=== PATIENT | male | born 1955 | race African-American/Black ===

== ENCOUNTER 2016-12-11 09:33 | Observation (INO) | payer OTHER ==
--- NOTE | 2016-12-11 10:17 | ER Document Report ---
ED Medical Screen (RME) - General Chief Complaint: Nausea/Vomiting/Diarrhea Stated Complaint: ABDOMINAL PAIN Notes: 61-year-old male here for diarrhea. Patient states she has had this diarrhea for 3 weeks. He also states that he has had right upper quadrant pain for 3 weeks. He states he has not had similar episodes in the past. He has been on no recent antibiotics. No fevers. He denies vomiting but states that he has been "spitting up". He denies any problems with urine. He states that the diarrhea is watery and it is every day for almost every bowel movement. He denies any black or bloody stool. Patient denies any abdominal surgeries. Patient states he has had hepatitis C in the past but this was treated with medications 3 years ago and he has had no further problems. Patient states he did start a new medicine 3 weeks ago for arthritis that is meloxicam. Patient' s vitals are stable. He does have some right upper quadrant tenderness to palpation. His heart is regular rate and rhythm. Lungs are clear to auscultation. Skin is warm and dry. Patient is alert, cooperative and conversant. TRAVEL OUTSIDE OF THE [place] IN LAST 30 DAYS: No - Related Data Allergies/Adverse Reactions: No Known Allergies Allergy (Unverified 12/11/16 10:14) Past Medical History Renal/ Medical History: Denies: Hx Peritoneal Dialysis Physical Exam - Vital signs Vitals: Temp Pulse Resp BP Pulse Ox 97.9 F 82 20 146/91 H 99 12/11/16 09:47 12/11/16 09:47 12/11/16 09:47 12/11/16 09:47 12/11/16 09:47 Course - Vital Signs Vital signs: Temp Pulse Resp BP Pulse Ox 97.9 F 82 20 146/91 H 99 12/11/16 09:47 12/11/16 09:47 12/11/16 09:47 12/11/16 09:47 12/11/16 09:47
[2016-12-11] MEDS ORDERED: NORMAL SALINE 1000 ML 1,000 ML IV PRN (10:18)
[2016-12-11 10:53] LABS: ABSOLUTE LYMPHOCYTES (AUTO) 1.6 10^3/uL (0.5-4.7); ABSOLUTE MONOCYTES (AUTO) 0.6 10^3/uL (0.1-1.4); ABSOLUTE NEUT (AUTO) 4.9 10^3/uL (1.7-8.2); BASOPHILS % (AUTO) 0.3 % (0-2); EOSINOPHILS % (AUTO) 0.1 % (0-6); HEMATOCRIT 42.2 % (37.9-51.0); HEMOGLOBIN 13.4 g/dL (13.5-17.0); LYMPHOCYTES % (AUTO) 22.6 % (13-45); MEAN CORPUSCULAR HEMOGLOBIN 25.2 pg (27.0-33.4); MEAN CORPUSCULAR HGB CONC 31.7 g/dL (32.0-36.0); MEAN CORPUSCULAR VOLUME 80 fl (80-97); MONOCYTES % (AUTO) 8.8 % (3-13); RED BLOOD COUNT 5.31 10^6/uL (4.35-5.55); RED CELL DISTRIBUTION WIDTH 14.7 % (11.5-14.0); SEGMENTED NEUTROPHILS % (AUTO) 68.2 % (42-78); WHITE BLOOD COUNT 7.2 10^3/uL (4.0-10.5)
[2016-12-11] MEDS ORDERED: NORMAL SALINE 1000 ML 1,000 ML IV ONE ×2 (11:11→15:26)
[2016-12-11] MEDS ORDERED: MORPHINE SULFATE 10 MG/ML INJ IV ONE (11:11)
[2016-12-11] MEDS ORDERED: ONDANSETRON HCL INJ/PF 4 MG/2 ML SDV IV ONE (11:11)
[2016-12-11 11:17] LABS: ALANINE AMINOTRANSFERASE 217 U/L (21-72); ALBUMIN 4.3 g/dL (3.5-5.0); ALKALINE PHOSPHATASE 606 U/L (38-126); ANION GAP 17 (5-19); ASPARTATE AMINO TRANSFERASE 475 U/L (17-59); BILIRUBIN,DIRECT 4.2 mg/dL (0.0-0.4); BILIRUBIN,TOTAL 6.1 mg/dL (0.2-1.3); BLOOD UREA NITROGEN 29 mg/dL (7-20); CALCIUM 9.5 mg/dL (8.4-10.2); CARBON DIOXIDE 28 mmol/L (22-30); CHLORIDE 95 mmol/L (98-107); CREATININE RESULT 1.57 mg/dL (0.52-1.25); GLUCOSE 108 mg/dL (75-110); LIPASE 217.3 U/L (23-300); POTASSIUM 3.6 mmol/L (3.6-5.0); SODIUM 140.3 mmol/L (137-145); TOTAL PROTEIN 8.6 g/dL (6.3-8.2)
--- NOTE | 2016-12-11 11:17 | ER Document Report ---
ED GI/ - General Chief Complaint: Nausea/Vomiting/Diarrhea Stated Complaint: ABDOMINAL PAIN Time Seen by Provider: 12/11/16 11:10 Information source: Patient Notes: 61-year-old male who presents today with some epigastric and right lower quadrant intermittent abdominal pain for the last 3 weeks with some nausea, vomiting, and diarrhea. He denies any blood in the vomit or diarrhea. He states he has had around 3 bouts of diarrhea per day. He denies any recent trips, travel, or antibiotics. Patient denies any aggravating or relieving factors. He denies any fevers, dysuria or flank pain. He denies any prior history of abdominal surgery. TRAVEL OUTSIDE OF THE [place] IN LAST 30 DAYS: No - HPI Patient complains to provider of: Abdominal pain Onset: Other - See above Timing/Duration: Gradual Quality of pain: Achy Severity at maximum: Moderate Severity in ED: Moderate Pain Level: 2 Location: Other - See above Sexual history: Inactive Associated symptoms: Other - See above Exacerbated by: Denies Relieved by: Denies Similar symptoms previously: No Recently seen / treated by doctor: Yes - Related Data Allergies/Adverse Reactions: No Known Allergies Allergy (Unverified 12/11/16 10:14) Past Medical History - General Information source: Patient - Social History Smoking Status: Current Some Day Smoker Cigarette use (# per day): No Chew tobacco use (# tins/day): No Smoking Education Provided: No Frequency of alcohol use: None Drug Abuse: Marijuana Family History: Reviewed & Not Pertinent Patient has suicidal ideation: No Patient has homicidal ideation: No - Past Medical History Cardiac Medical History: Reports: Hx Hypertension Renal/ Medical History: Denies: Hx Peritoneal Dialysis Surgical Hx: Negative Review of Systems - Review of Systems Constitutional: denies: Fever EENT: denies: Eye discharge, Nose discharge Cardiovascular: denies: Chest pain, Palpitations Respiratory: denies: Short of breath Gastrointestinal: Diarrhea, Vomiting Genitourinary: denies: Dysuria Musculoskeletal: denies: Leg swelling Skin: Other - no hives. denies: Rash Neurological/Psychological: Other - no slurred speech -: Yes All other systems reviewed and negative Physical Exam - Vital signs Vitals: Temp Pulse Resp BP Pulse Ox 97.9 F 82 20 146/91 H 99 12/11/16 09:47 12/11/16 09:47 12/11/16 09:47 12/11/16 09:47 12/11/16 09:47 Notes: Reviewed vital signs and nursing note as charted by RN. CONSTITUTIONAL: Alert and oriented and responds appropriately to questions. Well -appearing; well-nourished HEAD: Normocephalic; atraumatic EYES: Sclerae non-icteric ENT: Normal nose; no rhinorrhea; moist mucous membranes; pharynx without lesions noted NECK: Supple without meningismus; non-tender CARD: Regular rate and rhythm; no murmurs, no clicks, no rubs, no gallops; symmetric distal pulses RESP: Normal chest excursion without splinting or tachypnea; breath sounds clear and equal bilaterally ABD/GI: Normal bowel sounds; non-distended; soft, mildly tender to the right lower quadrant and midepigastric region with a negative Farley sign. No rebound or guarding. No abdominal bruits or palpable masses BACK: The back appears normal and is non-tender to palpation, there is no CVA tenderness EXT: Normal ROM in all joints; non-tender to palpation; no cyanosis, no effusions, no edema SKIN: Normal color for age and race; warm; dry; good turgor; capillary refill < 2 seconds; no acute lesions noted NEURO: Moves all extremities equally; Motor and sensory function intact PSYCH: The patient's mood and manner are appropriate. Grooming and personal hygiene are appropriate. Course - Re-evaluation Re-evalutation: 12/11/16 11:16 Given the above history and physical examination we will order liver panel, lipase, and a CT scan of the abdomen and pelvis. Vital signs are stable. Given the diarrhea for an excessive amount of time, a liter of fluid has been provided. Patient currently has no rebound or guarding. Patient comes in by EMS after initially being seen by his primary provider at the [place]. Patient has a packet with him about a recent MRI. Patient states many years ago he fell at work and is getting follow-up imaging for his back. He denies any incontinence, weakness or numbness of his legs. 12/11/16 11:19 Reviewing the patient's outside medical records it appears the patient has chronic hepatitis C with elevated transaminases as well as a history of alcohol abuse. 12/11/16 12:10 Patient appears to have a very elevated bilirubin and transaminitis. White blood cell count is recorded. I have added an ultrasound to the patient's laboratory panel. 12/11/16 15:22 CT scan of the abdomen and pelvis as recorded after an unremarkable ultrasound of the gallbladder region. Given the findings, we will admit the patient to the hospitalist for further evaluation and pain management as well as possible GI and oncology consultation. - Vital Signs Vital signs: Temp Pulse Resp BP Pulse Ox 97.8 F 67 18 145/86 H 94 12/11/16 13:28 12/11/16 13:28 12/11/16 13:28 12/11/16 13:28 12/11/16 13:28 - Laboratory Result Diagrams: 12/11/16 10:30 12/11/16 10:30 Laboratory results interpreted by me: 12/11/16 12/11/16 12/11/16 10:30 10:30 14:02 Hgb 13.4 L MCH 25.2 L MCHC 31.7 L RDW 14.7 H Chloride 95 L BUN 29 H Creatinine 1.57 H Est GFR ( Amer) 54 L Est GFR (Non-Af Amer) 45 L Total Bilirubin 6.1 H Direct Bilirubin 4.2 H AST 475 H ALT 217 H Alkaline Phosphatase 606 H Total Protein 8.6 H Urine Protein 100 H Urine Ketones TRACE H Urine Urobilinogen 4.0 H Discharge - Discharge Clinical Impression: Hyperbilirubinemia, Vomiting and diarrhea, Lesion of right lobe of liver Condition: Fair Disposition: ADMITTED INPATIENT Admitting Provider: Hospitalist Unit Admitted: Medical Floor
--- NOTE | 2016-12-11 13:52 | RADIOLOGY REPORT (SQ) ---
EXAM DESCRIPTION: U/S ABDOMEN LIMITED W/O DOP COMPLETED DATE/TIME: 12/11/2016 1:25 pm REASON FOR STUDY: 20; RLQ and RUQ abdominal pain with elevated bilir COMPARISON: None. TECHNIQUE: Dynamic and static grayscale images acquired of the abdomen and recorded on PACS. Additio nal selected color Doppler and spectral images recorded. LIMITATIONS: Study was limited somewhat due to overlying bowel gas. FINDINGS: PANCREAS: No masses. No peripancreatic edema or fluid collections. LIVER: Echotexture is coarse with increased echogenicity consistent with fatty infiltration. LIVER VASCULATURE: Portal vein is not visualized. GALLBLADDER: No stones. Normal wall thickness. No pericholecystic fluid. ULTRASOUND-DETECTED CEDILLO'S SIGN: Negative. INTRAHEPATIC DUCTS AND COMMON DUCT: No dilated intrahepatic bile ducts are identified. The common bi le duct was not visualized. No filling defects. INFERIOR VENA CAVA: Normal flow. AORTA: No aneurysm. RIGHT KIDNEY: 12.4 cm in length. Normal echogenicity. No solid or suspicious masses. Couple ayaz al cysts are identified with the largest measuring 2.9 x 1.2 1.6 cm in diameters. 2nd cyst measures 1.8 x 1.0 x 1.6 cm in diameters. No hydronephrosis. No calcifications. PERITONEAL AND RIGHT PLEURAL SPACE: No ascites or effusions. OTHER: No other significant finding. IMPRESSION: FATTY INFILTRATION OF THE LIVER. No other significant intra-abdominal abnormalities wer e identified. Other findings as noted above. TECHNICAL DOCUMENTATION: JOB ID: [id number] [email or web address]- All Rights Reserved
[2016-12-11 14:24] LABS: APPEARANCE,URINE SLIGHTLY-CLOUDY; BILIRUBIN,URINE NEGATIVE (NEGATIVE); GLUCOSE, URINE NEGATIVE (NEGATIVE); KETONES,URINE TRACE mg/dL (NEGATIVE); LEUKOCYTE ESTERASE,URINE NEGATIVE (NEGATIVE); NITRITE,URINE NEGATIVE (NEGATIVE); PROTEIN,URINE 100 mg/dL (NEGATIVE); URINE SPECIFIC GRAVITY 1.015
--- NOTE | 2016-12-11 15:04 | RADIOLOGY REPORT (SQ) ---
EXAM DESCRIPTION: CT ABD/PELVIS WITH IV ONLY COMPLETED DATE/TIME: 12/11/2016 2:43 pm REASON FOR STUDY: 20, Rlq and Ruq abdominal pain with vomiting and d COMPARISON: Abdominal ultrasound dated 12/11/2016 TECHNIQUE: CT scan of the abdomen and pelvis performed using helical scanning technique with dynamic intravenous contrast injection. No oral contrast. Images reviewed with lung, soft tissue, and bone windows. Reconstructed coronal and sagittal MPR images reviewed. Delayed images for evaluation of the urinary system also acquired. All images stored on PACS. All CT scanners at this facility use dose modulation, iterative reconstruction, and/or weight based d osing when appropriate to reduce radiation dose to as low as reasonably achievable (ALARA). [facility]: Dose Right [facility]: CareDose [facility]: Dose Right [facility]: Teradose 4D [facility]: LOC&ALL CONTRAST TYPE AND DOSE: contrast/concentration: Isovue 370.00 mg/ml; Total Contrast Delivered: 79.0 ml; Total Saline Delivered: 68.0 ml RENAL FUNCTION: Creatinine 1.57 RADIATION DOSE: Up-to-date CT equipment and radiation dose reduction techniques were employed. CTDIv ol: 10.2 - 14.7 mGy. DLP: 1519 mGy-cm.. LIMITATIONS: None. FINDINGS: LOWER CHEST: No significant findings. No nodules or infiltrates. LIVER: There is diffuse heterogeneous density throughout the right lobe of the liver with less pronou nced changes in the left lobe of the liver the appearance of which would suggest diffuse metastatic d isease. The possibility of a primary hepatic neoplasm cannot be excluded however. A small amount of perihepatic ascitic fluid is identified. SPLEEN: Normal size. No focal lesions. Perisplenic ascitic fluid is identified. PANCREAS: No masses. No significant calcifications. No adjacent inflammation or peripancreatic fluid collections. Pancreatic duct not dilated. GALLBLADDER: No identified stones by CT criteria. No inflammatory changes to suggest cholecystitis. ADRENAL GLANDS: No significant masses or asymmetry. RIGHT KIDNEY AND URETER: No solid masses. Small renal cysts are identified. No significant calcific ations. No hydronephrosis or hydroureter. LEFT KIDNEY AND URETER: No solid masses. Small renal cysts are identified. No significant calcifica tions. No hydronephrosis or hydroureter. AORTA AND VESSELS: No aneurysm. No dissection. Renal arteries, SMA, celiac without stenosis. RETROPERITONEUM: No retroperitoneal adenopathy, hemorrhage or masses. BOWEL AND PERITONEAL CAVITY: No masses or inflammatory changes. Lower abdominal and pelvic ascitic f luid is identified. APPENDIX: Not identified. PELVIS: Pelvic ascitic fluid is identified. ABDOMINAL WALL: No masses. No hernias. BONES: No significant or acute findings. OTHER: No other significant finding. IMPRESSION: There is diffuse heterogeneous density throughout the right lobe of the liver with less pronounced changes in the left lobe of the liver the appearance of which would suggest diffuse metast atic disease. The possibility of a primary hepatic neoplasm cannot be completely excluded however. Small amount of perihepatic and perisplenic ascitic fluid is identified. Ascitic fluid is identified in the lower abdomen and pelvis. Clinical correlation is recommended. Other findings as noted abov e TECHNICAL DOCUMENTATION: JOB ID: [id number] Quality ID # [id number]: Final reports with documentation of one or more dose reduction techniques (e.g., Au tomated exposure control, adjustment of the mA and/or kV according to patient size, use of iterative reconstruction technique) 2010 [employer]- All Rights Reserved
[2016-12-11] MEDS ORDERED: ACETAMINOPHEN 325 MG TABLET PO PRN (16:49)
[2016-12-11] MEDS ORDERED: DEXTROSE 5%-1/2 NORMAL SALINE 1,000 ML IV PRN (16:49)
[2016-12-11] MEDS ORDERED: ONDANSETRON HCL INJ/PF 4 MG/2 ML SDV IV PRN (16:49)
[2016-12-11] MEDS ORDERED: MORPHINE SULFATE 10 MG/ML INJ IV PRN (17:00)
[2016-12-11] MEDS ORDERED: OXYCODONE-ACETAMINOPHEN 5-325 MG TABLET PO PRN (17:01)
[2016-12-11] MEDS ORDERED: POTASSI CL 20 MEQ/50 ML RIDER 50 ML IV ONE (17:05)
--- NOTE | 2016-12-11 17:22 | PDOC H&P ---
History of Present Illness Admission Date/PCP: 12/11/16 15:36 ADELITA BARNETT NP Patient complains of: Nausea, vomiting diarrhea History of Present Illness: This is a 61-year-old -Gabonese male with a past medical history significant for hypertension dyslipidemia, and hepatitis C status post treatment who presents to the service with complaints of abdominal pain, nausea , vomiting and diarrhea. The patient states that he has had these symptoms now for the last few weeks. He cannot be more definitive than that. He states that he has bowel movements maybe 5-6 times per day. Today however he has not. He reports having an appetite but not being able to keep down food whether it be solids or liquids. He describes his abdominal pain as sharp, in the lower quadrant, that is worse with bleeding in. It is associated with sweats and chills. The patient states that home he did not try any [id number] medications to alleviate the discomfort. He presented to his primary care physician's office at the local [place] clinic and was sent over from there. He initially presented there with complaints of right and left lower quadrant abdominal pain. He states that they did a physical exam and then sent him directly over to the emergency room. In the emergency room the patient was given IV fluids and sent for CT of the abdomen and pelvis which revealed multiple lesions in the right lobe of the liver that seem to be consistent with metastatic disease. Primary lesion could not be identified. I was asked to admit the patient to the hospital for further workup. Past Medical History Cardiac Medical History: Reports: Hyperlipidema, Hypertension GI Medical History: Reports: Hepatitis - Patient states he has been at that he was treated for a year ago. Psychiatric Medical History: Reports: Post Traumatic Stress Disorder - The patient was not aware of this diagnosis but states that it might be Infectious Medical History: Reports: Hepatitis C Past Surgical History Past Surgical History: Reports: None Social History Information Source: Patient Smoking Status: Former Smoker - The patient quit smoking 2 years ago. Frequency of Alcohol Use: None Hx Recreational Drug Use: Yes - The patient smokes marijuana couple times a week Drugs: Marijuana Hx Prescription Drug Abuse: No - Advance Directive Resuscitation Status: Full Code Family History Family History: Malignancy - His mother and brother of an unknown malignancy. Parental Family History Reviewed: Yes Children Family History Reviewed: Yes Sibling(s) Family History Reviewed.: Yes Medication/Allergy Allergies/Adverse Reactions: No Known Allergies Allergy (Unverified 12/11/16 10:14) Review of Systems Review of Systems: Review of systems is pertinent for that already listed in the HPI. In addition to this the patient denies any blood in stool, urine, emesis, coughing up blood or nosebleeds. He denies any unexplained or unintentional weight loss. He says he has had a good appetite. Physical Exam Vital Signs: Temp Pulse Resp BP Pulse Ox 97.6 F 72 18 164/86 H 97 12/11/16 15:47 12/11/16 15:47 12/11/16 15:47 12/11/16 15:47 12/11/16 15:47 GENERAL: This is a well-developed and nourished appearing -Gabonese male resting in bed currently in no acute distress. HEART: Regular rate and rhythm. No murmurs, rubs or gallops. LUNGS: Clear to auscultation bilaterally with equal rise and fall of the chest. ABDOMEN: Soft, nontender (status post morphine), distended. Diminished bowel sounds. No fluid wave. EXTREMETIES: No clubbing, cyanosis or edema. 2+ peripheral pulses bilaterally. Strength is 5 out of 5 in both the upper and lower extremities bilaterally NEURO: Awake, alert and oriented 3. Cranial nerves II through XII are specifically intact. Results Impressions: Abdomen/Pelvis CT 12/11/16 11:10 IMPRESSION: There is diffuse heterogeneous density throughout the right lobe of the liver with less pronounced changes in the left lobe of the liver the appearance of which would suggest diffuse metastatic disease. The possibility of a primary hepatic neoplasm cannot be completely excluded however. Small amount of perihepatic and perisplenic ascitic fluid is identified. Ascitic fluid is identified in the lower abdomen and pelvis. Clinical correlation is recommended. Other findings as noted above Abdomen Ultrasound 12/11/16 12:10 IMPRESSION: FATTY INFILTRATION OF THE LIVER. No other significant intra- abdominal abnormalities were identified. Other findings as noted above. Assessment & Plan - Diagnosis (1) Liver lesion, right lobe Plan: Unfortunately the patient presents with multiple liver lesions that may be consistent with metastasis. No primary has been identified. We will obtain a CT of the chest in addition to this we will pursue biopsy of the liver. Hopefully this can be done tomorrow. Afterwards we will have him follow-up at the [place] for longer if his vomiting is controlled. (2) Hyperbilirubinemia Plan: Secondary to #1. Management as above. (3) Hypertension Plan: Continue home medications. (4) Dyslipidemia Plan: Continue home medications. (5) History of hepatitis C Plan: Hepatitis panel will be performed. (6) Vomiting and diarrhea Plan: The patient may have clear liquids for now. His vomiting has subsided. Zofran will be ordered as needed. In addition to this the patient has not had any diarrhea today. We will monitor for this. (7) Renal failure Plan: Is unclear if this is acute versus acute on chronic or chronic. The patient has never been here before and I do not have a baseline creatinine. However, he does present with nausea, vomiting, diarrhea. He certainly could be acutely dehydrated. We are continuing his IV fluids on the floor and we will recheck his labs in the morning, at which time I should be able to make a better determination as to his renal function. - Time Time Spent: 50 to 70 Minutes Anticipated discharge: Home Within: within 24 hours - Inpatient Certification Medical Necessity: Failure to Improve With Outpatient Therapy, Need For IV Fluids
[2016-12-11] MEDS ORDERED: ENOXAPARIN SODIUM INJ 40 MG/0.4 ML DISP.SYRIN SUBCUT ONE (18:00)
[2016-12-12 06:29] LABS: ALANINE AMINOTRANSFERASE 253 U/L (21-72); ALBUMIN 3.9 g/dL (3.5-5.0); ALKALINE PHOSPHATASE 599 U/L (38-126); ANION GAP 16 (5-19); ASPARTATE AMINO TRANSFERASE 636 U/L (17-59); BILIRUBIN,TOTAL 6.4 mg/dL (0.2-1.3); BLOOD UREA NITROGEN 32 mg/dL (7-20); CALCIUM 8.7 mg/dL (8.4-10.2); CARBON DIOXIDE 26 mmol/L (22-30); CHLORIDE 98 mmol/L (98-107); CREATININE RESULT 1.46 mg/dL (0.52-1.25); GLUCOSE 90 mg/dL (75-110); MAGNESIUM 2.2 mg/dL (1.6-2.3); POTASSIUM 3.7 mmol/L (3.6-5.0); SODIUM 139.8 mmol/L (137-145); TOTAL PROTEIN 7.8 g/dL (6.3-8.2)
[2016-12-12 06:56] LABS: PROTHROMBIN TIME 14.5 SEC (11.4-15.4)
[2016-12-12] MEDS: ENOXAPARIN SODIUM INJ 40 MG/0.4 ML DISP.SYRIN SUBCUT SCH (09:16)
[2016-12-12] MEDS ORDERED: MIDAZOLAM 2 MG/2 ML INJ ONE (13:51)
[2016-12-12] MEDS ORDERED: FENTANYL CITRATE INJ/PF 100 MCG/2 ML AMPUL ONE (13:52)
[2016-12-12] MEDS ORDERED: ACETAMINOPHEN 325 MG TABLET PO PRN (14:26)
[2016-12-12] MEDS ORDERED: MORPHINE SULFATE 10 MG/ML INJ IV PRN (14:26)
[2016-12-12] MEDS ORDERED: ONDANSETRON HCL INJ/PF 4 MG/2 ML SDV IV PRN (14:27)
--- NOTE | 2016-12-12 14:33 | RADIOLOGY REPORT (SQ) ---
EXAM DESCRIPTION: CT CHEST WITHOUT COMPLETED DATE/TIME: 12/12/2016 1:35 pm REASON FOR STUDY: liver mets COMPARISON: None. TECHNIQUE: CT scan performed of the chest without intravenous contrast. Images reviewed with lung, soft tissue and bone windows. Reconstructed coronal and sagittal MPR images reviewed. All images st ored on PACS. All CT scanners at this facility use dose modulation, iterative reconstruction, and/or weight based d osing when appropriate to reduce radiation dose to as low as reasonably achievable (ALARA). [facility]: Dose Right [facility]: CareDose [facility]: Dose Right [facility]: Teradose 4D [facility]: [employer] RADIATION DOSE: mGy. LIMITATIONS: No technical limitations. FINDINGS: LUNGS AND PLEURA: No masses, infiltrates, pneumothorax. No pleural effusions, calcificati ons. Linear scarring or atelectasis is identified in the right lung base HILAR AND MEDIASTINAL STRUCTURES: No identified masses or abnormal nodes. No obvious aneurysm. HEART AND VASCULAR STRUCTURES: No aneurysm. No pericardial effusion. Coronary artery calcifications are identified. UPPER ABDOMEN: See results under abdominal CT scan THYROID AND OTHER SOFT TISSUES: No masses. No adenopathy. BONES: No significant finding. HARDWARE: None in the chest. OTHER: No other significant findings. IMPRESSION: No evidence for intrathoracic metastatic disease. Other findings as noted above TECHNICAL DOCUMENTATION: JOB ID: [id number] Quality ID # [id number]: Final reports with documentation of one or more dose reduction techniques (e.g., Au tomated exposure control, adjustment of the mA and/or kV according to patient size, use of iterative reconstruction technique) 2010 [employer]- All Rights Reserved
--- NOTE | 2016-12-12 14:50 | RADIOLOGY REPORT (SQ) ---
EXAM DESCRIPTION: CT NEEDLE PLACEMENT COMPLETE DATE/TIME: 12/12/2016 2:35 pm REASON FOR STUDY: LIVER LESIONS CONSISTENT WITH METS FINDINGS: Please see combined report for performance of procedure and radiologic supervision and int erpretation. IMPRESSION: Please see combined report for performance of procedure and radiologic supervision and i nterpretation.
--- NOTE | 2016-12-12 14:53 | RADIOLOGY REPORT (SQ) ---
EXAM DESCRIPTION: CT BIOPSY LIVER COMPLETED DATE/TIME: 12/12/2016 2:35 pm REASON FOR STUDY: LIVER LESIONS CONSISTENT WITH METS COMPARISON: None. TECHNIQUE: After obtaining informed consent, the patient was brought to the CT suite and was placed supine on the CT gurney. The patient was prepped and draped in the usual sterile fashion . Axial romana ges were obtained for targeting of theright lobe of the liver. An appropriate access site was selecte d. IV sedation was administered and physician direction by the registered nurse using 1 milligrams of Versed and 25 micrograms of fentanyl. Physiologic monitoring was provided before, during, and after sedation. The total sedation time was 30 minutes. Documentation face to face time, the performing proceduralist, spent monitoring the patient: 10minute s. Noncontrasted CT of the liver was performed to localize an approach for the right lobe liver biopsy. A percutaneous site was marked. Time out was performed. After skin prep and local lidocaine for skin and deep tissue anesthesia, a coaxial biopsy needle sys tem was used to obtain several cores of tissue from the right lobe of the liver. These were submitte d to the lab in formalin. Biopsy tract was embolized with a Gelfoam plug. No immediate postprocedur e complications. Total of 5.[address] fluoro was used. All CT scanners at this facility use dose modulation, iterative reconstruction, and/or weight based d osing when appropriate to reduce radiation dose to as low as reasonably achievable (ALARA). [facility]: Dose Right [facility]: CareDose [facility]: Dose Right [facility]: Teradose 4D [facility]: [employer] RADIATION DOSE: Up-to-date CT equipment and radiation dose reduction techniques were employed. CTDIv ol: 20.4 mGy. DLP: 544 mGy-cm. mGy. LIMITATIONS: None. FINDINGS: CT guided liver biopsy as detailed above. IMPRESSION: CT GUIDED right lobe of the LIVER BIOPSY PERFORMED ABOVE. PATHOLOGY PENDING. NO IM MEDIATE COMPLICATIONS. COMMENT: Patient medication list reviewed:Yes. Quality ID 145: Final reports for procedures using fluoroscopy that document radiation exposure deisy hoang, or exposure time and number of fluorographic images (if radiation exposure indices are not avail able) TECHNICAL DOCUMENTATION: JOB ID: [id number] Quality ID # [id number]: Final reports with documentation of one or more dose reduction techniques (e.g., A utomated exposure control, adjustment of the mA and/or kV according to patient size, use of iterative reconstruction technique) 2010 [employer]- All Rights Reserved
--- NOTE | 2016-12-12 17:47 | PDOC PROGRESS REPORT ---
Subjective Progress Note for:: 12/12/16 Subjective:: Patient was seen this morning at the bedside and is understandably upset at the potential of his diagnosis. He still complains of nausea but has not asked for any nausea medications. He denies any chest pain or shortness of breath. He awaits liver biopsy. Physical Exam Vital Signs: Temp Pulse Resp BP Pulse Ox 98.0 F 83 18 144/67 H 98 12/12/16 15:06 12/12/16 15:06 12/12/16 15:06 12/12/16 15:06 12/12/16 15:06 Intake & Output 12/11/16 12/12/16 12/13/16 06:59 06:59 06:59 Intake Total 1496 1210 Output Total 470 Balance 1026 1210 Weight 92.3 kg GENERAL: This is a well-developed and nourished appearing -[place] male resting in bed currently in no acute distress. HEART: Regular rate and rhythm. No murmurs, rubs or gallops. LUNGS: Clear to auscultation bilaterally with equal rise and fall of the chest. ABDOMEN: Soft, distended. EXTREMETIES: No clubbing, cyanosis. Trace edema at the ankles bilaterally. 1+ peripheral pulses bilaterally. NEURO: Awake, alert and oriented 3. Cranial nerves II through XII are grossly intact. Results Laboratory Results: 12/12/16 05:11 12/12/16 05:11 Sodium 139.8 Potassium 3.7 Chloride 98 Carbon Dioxide 26 Anion Gap 16 BUN 32 H Creatinine 1.46 H Est GFR ( Amer) 59 L Est GFR (Non-Af Amer) 49 L Glucose 90 Calcium 8.7 Magnesium 2.2 Total Bilirubin 6.4 H AST 636 H ALT 253 H Alkaline Phosphatase 599 H Total Protein 7.8 Albumin 3.9 Impressions: Chest CT 12/11/16 00:00 IMPRESSION: No evidence for intrathoracic metastatic disease. Other findings as noted above Abdomen/Pelvis CT 12/11/16 11:10 IMPRESSION: There is diffuse heterogeneous density throughout the right lobe of the liver with less pronounced changes in the left lobe of the liver the appearance of which would suggest diffuse metastatic disease. The possibility of a primary hepatic neoplasm cannot be completely excluded however. Small amount of perihepatic and perisplenic ascitic fluid is identified. Ascitic fluid is identified in the lower abdomen and pelvis. Clinical correlation is recommended. Other findings as noted above Abdomen Ultrasound 12/11/16 12:10 IMPRESSION: FATTY INFILTRATION OF THE LIVER. No other significant intra- abdominal abnormalities were identified. Other findings as noted above. Guidance Needle Placement CT 12/12/16 00:00 IMPRESSION: Please see combined report for performance of procedure and radiologic supervision and interpretation. Liver Biopsy CT 12/12/16 00:00 IMPRESSION: CT GUIDED right lobe of the LIVER BIOPSY PERFORMED ABOVE. PATHOLOGY PENDING. NO IMMEDIATE COMPLICATIONS. Assessment & Plan - Diagnosis (1) Liver lesion, right lobe Plan: Unfortunately the patient presents with multiple liver lesions that may be consistent with metastasis. No primary has been identified. CT of the chest was done which does not show any evidence of metastatic disease. We are awaiting liver biopsy later on today. (2) Hyperbilirubinemia Plan: Secondary to #1. Management as above. Essentially the same as admission. I do note that his AST and ALT continue to increase. (3) Hypertension Plan: Continue home medications. (4) Dyslipidemia Plan: Continue home medications. (5) History of hepatitis C Plan: Hepatitis panel pending (6) Vomiting and diarrhea Plan: Patient is still nauseous. He has not tried any antiemetic. He has not eaten yet today. Resume diet after procedure.. (7) Renal failure Plan: Is unclear if this is acute versus acute on chronic or chronic. The patient has never been here before and I do not have a baseline creatinine. His creatinine has marginally improved overnight. Recheck again in the morning. - Time Time Spent with patient: 15-24 minutes - The patient remains in observation status. I do not know what time his biopsy will happen and he continues to have nausea.
[2016-12-13 09:33] LABS: ANION GAP 15 (5-19); BLOOD UREA NITROGEN 30 mg/dL (7-20); CALCIUM 9.1 mg/dL (8.4-10.2); CARBON DIOXIDE 26 mmol/L (22-30); CHLORIDE 96 mmol/L (98-107); CREATININE RESULT 1.27 mg/dL (0.52-1.25); GLUCOSE 124 mg/dL (75-110); MAGNESIUM 2.4 mg/dL (1.6-2.3); POTASSIUM 3.4 mmol/L (3.6-5.0); SODIUM 137.4 mmol/L (137-145)
[2016-12-13] MEDS: ENOXAPARIN SODIUM INJ 40 MG/0.4 ML DISP.SYRIN SUBCUT SCH (10:29)
[2016-12-13 12:05] VITALS: BP 137/78
--- NOTE | 2016-12-13 13:11 | PDOC DISCHARGE SUMMARY ---
General - Admit/Disc Date/PCP Admission Date/Primary Care Provider: 12/11/16 15:36 ADELITA BARNETT NP Discharge Date: 12/13/16 - Discharge Diagnosis (1) Liver lesion, right lobe Summary: Status post CT-guided biopsy. Pathology is pending. He will need to follow-up with the [place] [facility] for finalized result. This certainly could be related to his previous history of hepatitis C. The patient did have a CT scan of the chest well which was negative for any evidence of primary lesion. (2) Hyperbilirubinemia Summary: Secondary to liver lesions. Follow-up with PCP (3) Hypertension Summary: The patient has had no trouble with his blood pressure here in the hospital. Follow-up with PCP. Continue amlodipine and HCTZ. (5) History of hepatitis C Summary: Follow-up with PCP. The patient says he was treated for this a year ago. (6) Vomiting and diarrhea Summary: Resolved. (7) Renal failure Summary: This is likely acute on chronic. With fluid resuscitation the patient's creatinine did drop down to 1.2 prior to discharge. Likely he had some element of dehydration from his vomiting and diarrhea. - Additional Information Resuscitation Status: Full Code Discharge Diet: As Tolerated, Regular Discharge Activity: Activity As Tolerated Home Medications: Amlodipine Besylate [Norvasc 10 mg Tablet] 10 mg PO DAILY 12/12/16 Hydrochlorothiazide 25 mg PO DAILY 12/12/16 Meloxicam [Mobic 15 mg Tablet] 15 mg PO QAM 12/12/16 Potassium Chloride [Klor-Con 10 Meq Tablet.sa] 30 meq PO DAILY 12/12/16 Propranolol HCl [Propranolol HCl ER] 60 mg PO DAILY 12/12/16 Ondansetron HCl [Zofran 4 mg Tablet] 1 - 2 tab PO Q4H PRN #10 tablet 12/13/16 Oxycodone HCl/Acetaminophen [Percocet 5-325 mg Tablet] 1 tab PO Q4HP PRN #10 tablet 12/13/16 History of Present Illness Patient complains of: Abdominal pain History of Present Illness: This is a 61-year-old -Turk[place] male with a past medical history significant for hypertension dyslipidemia, and hepatitis C status post treatment who presents to the service with complaints of abdominal pain, nausea , vomiting and diarrhea. The patient states that he has had these symptoms now for the last few weeks. He cannot be more definitive than that. He states that he has bowel movements maybe 5-6 times per day. Today however he has not. He reports having an appetite but not being able to keep down food whether it be solids or liquids. He describes his abdominal pain as sharp, in the lower quadrant, that is worse with bleeding in. It is associated with sweats and chills. The patient states that home he did not try any [id number] medications to alleviate the discomfort. He presented to his primary care physician's office at the local [facility] and was sent over from there. He initially presented there with complaints of right and left lower quadrant abdominal pain. He states that they did a physical exam and then sent him directly over to the emergency room. In the emergency room the patient was given IV fluids and sent for CT of the abdomen and pelvis which revealed multiple lesions in the right lobe of the liver that seem to be consistent with metastatic disease. Primary lesion could not be identified. I was asked to admit the patient to the hospital for further workup. Hospital Course Hospital Course: The patient was admitted to the observation status. He was provided with IV fluids for acute dehydration. In addition to this, the patient received antiemetics for his nausea and vomiting. He did not have any further diarrhea while he was here in the hospital. In the emergency room it was found that he had a right lobe lesion of the liver. He underwent CT-guided biopsy and these results are pending at the time of discharge. As part of his discharge plan he is going home with a prescription for Percocet for continued abdominal pain likely from underlying cancer and Zofran for nausea and vomiting. The patient was noted to have some minor swelling on his ankles he states that he is currently on diuretics as an outpatient and that he just got the prescription filled. Therefore, no diuretics were prescribed for his ascites. Patient was instructed to follow-up with his primary care physician for the results of his biopsy. He is currently stable and Physical Exam Vital Signs: Temp Pulse Resp BP Pulse Ox 98.1 F 87 19 137/78 H 96 12/13/16 12:24 12/13/16 12:24 12/13/16 12:24 12/13/16 12:24 12/13/16 12:24 Intake & Output 07/20/17 07/21/17 07/22/17 06:59 06:59 06:59 Intake Total 1496 2080 0 Output Total 470 680 Balance 1026 1400 0 Weight 92.3 kg 93.2 kg GENERAL: This is a well-developed and nourished appearing -Turk[place] male resting in bed currently in no acute distress. HEART: Regular rate and rhythm. No murmurs, rubs or gallops. LUNGS: Clear to auscultation bilaterally with equal rise and fall of the chest. ABDOMEN: Soft, distended. EXTREMETIES: No clubbing, cyanosis. Trace edema at the ankles bilaterally. 1+ peripheral pulses bilaterally. NEURO: Awake, alert and oriented 3. Cranial nerves II through XII are grossly intact. Results Laboratory Results: 12/13/16 09:05 12/13/16 09:05 Sodium 137.4 Potassium 3.4 L Chloride 96 L Carbon Dioxide 26 Anion Gap 15 BUN 30 H Creatinine 1.27 H Est GFR ( Amer) > 60 Est GFR (Non-Af Amer) 57 L Glucose 124 H Calcium 9.1 Magnesium 2.4 H Impressions: Chest CT 12/11/16 00:00 IMPRESSION: No evidence for intrathoracic metastatic disease. Other findings as noted above Abdomen/Pelvis CT 12/11/16 11:10 IMPRESSION: There is diffuse heterogeneous density throughout the right lobe of the liver with less pronounced changes in the left lobe of the liver the appearance of which would suggest diffuse metastatic disease. The possibility of a primary hepatic neoplasm cannot be completely excluded however. Small amount of perihepatic and perisplenic ascitic fluid is identified. Ascitic fluid is identified in the lower abdomen and pelvis. Clinical correlation is recommended. Other findings as noted above Abdomen Ultrasound 12/11/16 12:10 IMPRESSION: FATTY INFILTRATION OF THE LIVER. No other significant intra- abdominal abnormalities were identified. Other findings as noted above. Guidance Needle Placement CT 12/12/16 00:00 IMPRESSION: Please see combined report for performance of procedure and radiologic supervision and interpretation. Liver Biopsy CT 12/12/16 00:00 IMPRESSION: CT GUIDED right lobe of the LIVER BIOPSY PERFORMED ABOVE. PATHOLOGY PENDING. NO IMMEDIATE COMPLICATIONS. Qualifiers PATEINT BEING DISCHARGED WITH ANY OF THE FOLLOWING DIAGNOSIS?: No Plan Time Spent: Less than 30 Minutes
== END 2016-12-13 13:56 | disposition home or self-care (01) ==
LOC: ER 09:33 → EH 15:36 → INTOOBSV 15:36 → 4S 17:37
PROVIDERS: ADMIT Internal Medicine; ATTEND Internal Medicine
PROC: BF25ZZZ Computerized Tomography (CT Scan) of Liver (ICD-10-PCS; principal; 2016-12-12)
PROC: 0FB13ZX Excision of Right Lobe Liver, Percutaneous Approach, Diagnostic (ICD-10-PCS; 2016-12-12)
DX: C22.0 Liver cell carcinoma (principal); I10 Essential (primary) hypertension; Z86.19 Personal history of other infectious and parasitic diseases; R11.2 Nausea with vomiting, unspecified; R19.7 Diarrhea, unspecified; N19 Unspecified kidney failure; R60.0 Localized edema; E78.5 Hyperlipidemia, unspecified; M19.90 Unspecified osteoarthritis, unspecified site; Z79.899 Other long term (current) drug therapy; Z87.891 Personal history of nicotine dependence; Z80.9 Family history of malignant neoplasm, unspecified; Z87.898 Personal history of other specified conditions; Z79.1 Long term (current) use of non-steroidal anti-inflammatories (NSAID)
CPT/HCPCS: 99285; 96374; 96375; 36415 ×3; 83690; 83735 ×2; 85025; 85610; 80048; 80053 ×2; 81001; 80074; 88342 ×2; 88341 ×2; 88307 ×2; 76705; 71250; 74177; 77012; 47000; J2250; J3010; J2270; J1650 ×2; J2405; J3480; J7030; G0378